=== PATIENT | male | born 1965 | race Two or more races ===

== ENCOUNTER 2018-06-01 09:57 | Emergency (ER) | payer MEDICAID ==
--- NOTE | 2018-06-01 11:05 | XRAY Report ---
Reason: injury pain Procedure Date: 06/01/2018 Accession Number: [id number] / [id number] Procedure: XR - Knee 4 View LT CPT Code: FULL RESULT: EXAM: LEFT KNEE RADIOGRAPHY EXAM DATE: 06/01/2018 10:38 AM. CLINICAL HISTORY: Left knee pain. COMPARISON: None. TECHNIQUE: 3 views. FINDINGS: Bones: Normal. No fractures or bone lesions. Joints: Normal. No effusion. No subluxations. Soft Tissues: Normal. No soft tissue swelling. IMPRESSION: Normal knee radiography. [facility]
[2018-06-01] MEDS ORDERED: IBUPROFEN 400 MG TABLET PO STA (11:35)
--- NOTE | 2018-06-01 12:58 | ED Physician Documentation ---
History of Present Illness - Stated complaint Stated Complaint: KNEE PX - Chief complaint Chief Complaint: Ext Problem - Additonal information Additional information: hx from pt 52 male hit from medial aspect L knee by a large dog pain and swelling Review of Systems Musculoskeletal: reports: Pain with weight bearing PD PAST MEDICAL HISTORY - Past Medical History Past Medical History: Yes Cardiovascular: Hypertension - Past Surgical History Past Surgical History: Yes Ortho: Amputation, Other - Present Medications Home Medications: Ambulatory Orders Medication Instructions Recorded Confirmed Amlodipine Besylate 10 mg PO DAILY #14 tablet 10/21/15 Lisinopril [Zestril] 40 mg PO DAILY #14 tablet 10/21/15 hydroCHLOROthiazide 12.5 mg PO DAILY 10/21/15 10/21/15 [Hydrochlorothiazide] - Allergies Allergies/Adverse Reactions: Allergies Allergy/AdvReac Type Severity Reaction Status Date / Time No Known Drug Allergies Allergy Verified 06/01/18 10:14 - Social History Does the pt smoke?: No Smoking Status: Never smoker Does the pt drink ETOH?: No Does the pt have substance abuse?: No - Immunizations Immunizations are current?: Yes - POLST Patient has POLST: No PD ED PE NORMAL - Vitals Vital signs reviewed: Yes - Extremities Extremities: Other (L knee + effusion, medial jt lkne TTP, slight LCL laxity but end pt, no MCL ACL laxity, quad and patellar tendon NT and ext mech intact, + pain with meniscal testing but no catch or pop) Results - Vitals Vitals: Vital Signs - 24 hr 06/01/18 10:12 Temperature 36.6 C Heart Rate 100 Respiratory 20 Rate Blood Pressure 138/99 H O2 Saturation 100 Oxygen O2 Source Room air - Rads (name of study) knee Radiology: See rad report (neg) PD MEDICAL DECISION MAKING - Sepsis Event Vital Signs: Vital Signs - 24 hr 06/01/18 10:12 Temperature 36.6 C Heart Rate 100 Respiratory 20 Rate Blood Pressure 138/99 H O2 Saturation 100 Oxygen O2 Source Room air Departure - Departure Disposition: 01 Home, Self Care Clinical Impression: Knee effusion, left Condition: Good Follow-Up: [facility] [Provider Group] Comments: The xray is fine - no fracture Based on the mechansim of injury and your exam i am concerned you may have torn a meniscus For now I suggest an JOHNATHAN wrap ice and elevation to decrease the swelling and pain. Crutches to decrease weight bearing stress Motrin and tylneol for the pain If still painful and swollen in a week, please follow up with orthopedics for further evaluation of the meniscus and perhaps a MRI Forms: Activity restrictions
[2018-06-01 15:05] VITALS: BP 126/81
== END 2018-06-01 14:02 | disposition home or self-care (01) ==
LOC: ED 09:57
DX: M25.462 Effusion, left knee (principal); I10 Essential (primary) hypertension; W54.1XXA Struck by dog, initial encounter
CPT/HCPCS: 73564; 99282; 99283; A9270